=== PATIENT | male | born 1995 | race Caucasian/White ===

== ENCOUNTER 2021-01-06 22:32 | Emergency (ER) | payer SELFPAY | END 2021-01-07 01:03 | disposition left against medical advice (07) | LOC: ER1 22:32 | DX: Z53.21 Procedure and treatment not carried out due to patient leaving prior to being seen by health care provider (principal) | CPT/HCPCS: 81001; 87086 ==

== ENCOUNTER 2021-01-09 20:29 | Emergency (ER) | payer OTHER ==
[2021-01-09 22:23] LABS: HEMOGLOBIN 14.4 gm/dl (14.0-17.5); RED BLOOD COUNT 4.34 M/UL (4.20-5.50); WHITE BLOOD COUNT 9.7 K/UL (4.5-11.0)
[2021-01-09 22:43] LABS: BUN/CREATININE RATIO 18 (0-10)
== END 2021-01-10 00:52 | disposition home or self-care (01) ==
LOC: ER1 20:29
PROVIDERS: Nurse Practitioner
DX: R10.11 Right upper quadrant pain (principal); R11.2 Nausea with vomiting, unspecified; Z88.1 Allergy status to other antibiotic agents
CPT/HCPCS: 80053; 83605; 83690; 85025; 86140; 87040; 96374; 96375; 99284; J2405; J2550; Q9967